=== PATIENT | female | born 1990 | race Caucasian/White ===

== ENCOUNTER 2019-03-11 03:57 | Emergency (ER) | payer MEDICAID, OTHER ==
[~2019-03-11] VITALS: Ht 165.1 cm; Wt 66.0 kg
[~2019-03-11 03:57] MED LIST: PREN-88 PO
[2019-03-11] MEDS ORDERED: MORPHINE SULFATE 4 MG/ML CPJ (NOT FOR IM USE) IV STA (04:34)
[2019-03-11] MEDS ORDERED: ONDANSETRON HCL 4MG/2ML INJ IV STA (04:34)
[2019-03-11] MEDS ORDERED: SODIUM CHLORIDE 0.9% 1,000 ML IV ONE (04:34)
[2019-03-11] MEDS ORDERED: MAGNESIUM/ALUMINUM HYDROXIDE/SIMETHICONE 30ML UDC PO STA (04:34)
[2019-03-11 04:55] LABS: CHLORIDE 106 mEq/L (98-107)
[2019-03-11 04:56] LABS: BASOPHILS % 0.5 % (0.0-2.0); EOSINOPHILS % 4.9 % (0.0-5.0); HEMATOCRIT. 35.4 % (36.0-48.0); HEMOGLOBIN. 11.7 g/dL (12.0-16.0); LYMPHOCYTES % 22.7 % (20.0-50.0); MEAN CORPUSCULAR HEMOGLOBIN 25.7 pg (28.0-32.0); MEAN PLATELET VOLUME 8.6 fl (7.4-10.4); NEUTROPHILS % 64.9 % (40.0-76.0); PLATELET 192 x1000/uL (130-400); RED BLOOD CELL COUNT 4.54 mill/uL (4.2-5.4); RED CELL DISTRIBUTION WIDTH 13.7 % (11.6-14.6)
[2019-03-11 07:00] VITALS: BP 117/84
== END 2019-03-11 07:13 | disposition home or self-care (01) ==
LOC: ER 03:57
DX: R10.13 Epigastric pain (principal); F12.90 Cannabis use, unspecified, uncomplicated
CPT/HCPCS: 36415; 76705; 80053; 83690; 85025; 96374; 96375; 99284; J2270; J2405; J7030

== ENCOUNTER 2019-04-02 22:46 | Emergency (ER) | payer OTHER ==
[~2019-04-02] VITALS: Ht 165.1 cm; Wt 67.0 kg
[2019-04-03 00:28] VITALS: BP 122/72
== END 2019-04-03 00:29 | disposition home or self-care (01) ==
LOC: ER 22:46
DX: S61.211A Laceration without foreign body of left index finger without damage to nail, initial encounter (principal); W26.0XXA Contact with knife, initial encounter; Y93.89 Activity, other specified; Y92.89 Other specified places as the place of occurrence of the external cause; Y99.8 Other external cause status; F12.10 Cannabis abuse, uncomplicated
CPT/HCPCS: 12001; 99283